=== PATIENT | male | born 1975 | race Two or more races ===

== ENCOUNTER 2023-08-28 12:04 | Outpatient (OUT) | payer OTHER, SELFPAY ==
[2023-08-28 12:37] LABS: Basophils Absolute Auto 0.1 10^3/uL (0.0-0.1); Basophils Percent Auto 0.7 % (0.2-2.0); Eosinophils Absolute Auto 0.2 10^3/uL (0.0-0.7); Eosinophils Percent Auto 2.2 % (0.9-7.0); Hematocrit 48.4 % (42.0-54.0); Hemoglobin 16.6 g/dL (14.0-18.0); Immature Granulocytes Abs Auto 0.02 10^3/uL (0.00-0.03); Immature Granulocytes Pct Auto 0.2 % (0.0-0.5); Lymphocytes Absolute Auto 2.2 10^3/uL (1.2-3.8); Mean Corpuscular HGB Conc 34.3 g/dL (29.9-35.2); Mean Corpuscular Hemoglobin 31.9 pg (25.9-34.0); Mean Corpuscular Volume 93.1 fL (80.0-94.0); Mean Platelet Volume 9.1 fL (9.5-13.5); Monocytes Absolute Auto 0.8 10^3/uL (0.3-0.8); Monocytes Percent Auto 8.2 % (1.7-12.0); Neutrophils Absolute Auto 5.9 10^3/uL (1.4-6.5); Neutrophils Percent Auto 64.7 % (43.0-75.0); Platelet Count 231 10^3/uL (150-450); Red Cell Distribution Width 12.6 % (11.0-15.0); White Blood Count 9.1 10^3/uL (4.0-11.0)
[2023-08-28 12:55] LABS: Estimated Average Glucose 143 mg/dL; Glycohemoglobin A1C 6.6 % (4.5-6.2)
[2023-08-28 14:07] LABS: Alanine Aminotransferase 63 U/L (16-63); Albumin Level 3.9 g/dL (3.4-5.0); Alkaline Phosphatase 132 U/L (46-116); Anion Gap 12.8; Aspartate Amino Transferase 52 U/L (15-37); BUN Creatinine Ratio 11.3; Bilirubin Direct 0.2 mg/dL (0.0-0.2); Bilirubin Total 0.9 mg/dL (0.2-1.0); Calcium 9.1 mg/dL (8.5-10.1); Carbon Dioxide 26.3 mmol/L (21.0-32.0); Chloride 106 mmol/L (98-107); Chol HDL Ratio 2.8; Cholesterol 150 mg/dL (<=200); Estimated GFR (African America >60 (>=60); Estimated GFR (Non-African Ame >60 (>=60); Globulin 3.9 g/dL; Glucose 136 mg/dL (74-106); HDL Cholesterol 53 mg/dL (40-60); Potassium 4.1 mmol/L (3.5-5.1); Sodium 141 mmol/L (136-145); Thyroid Stimulating Hormone 1.015 uIU/mL (0.358-3.740); Total Protein 7.8 g/dL (6.4-8.2); Triglycerides 135 mg/dL (<=150)
[2023-08-28 14:11] LABS: Microalbumin Urine Random 15.5 mg/dL (<=30.0)
== END 2023-08-28 12:05 | disposition home or self-care (01) ==
LOC: LAB 12:07
PROVIDERS: PCP Family Medicine; Visit Provider Family Medicine
DX: Z00.00 Encounter for general adult medical examination without abnormal findings (principal); E55.9 Vitamin D deficiency, unspecified; E11.65 Type 2 diabetes mellitus with hyperglycemia
CPT/HCPCS: 36415; 80048; 80061; 80076; 82043; 82306; 83036; 84153; 84443; 85025

== ENCOUNTER 2024-03-23 09:47 | Outpatient (OUT) | payer OTHER, SELFPAY ==
[2024-03-23 11:31] LABS: Estimated Average Glucose 180 mg/dL; Glycohemoglobin A1C 7.9 % (4.5-6.2)
== END 2024-03-23 09:48 | disposition home or self-care (01) ==
LOC: LAB 09:49
PROVIDERS: PCP Family Medicine; Visit Provider Family Medicine
DX: E11.65 Type 2 diabetes mellitus with hyperglycemia (principal)
CPT/HCPCS: 36415; 83036

== ENCOUNTER 2024-11-07 12:36 | Outpatient (OUT) | payer OTHER, SELFPAY ==
[2024-11-07 13:12] LABS: Basophils Absolute Auto 0.1 10^3/uL (0.0-0.1); Basophils Percent Auto 0.7 % (0.2-2.0); Eosinophils Absolute Auto 0.2 10^3/uL (0.0-0.7); Eosinophils Percent Auto 1.8 % (0.9-7.0); Hematocrit 47.4 % (42.0-54.0); Hemoglobin 17.1 g/dL (14.0-18.0); Immature Granulocytes Abs Auto 0.03 10^3/uL (0.00-0.03); Immature Granulocytes Pct Auto 0.3 % (0.0-0.5); Lymphocytes Absolute Auto 2.5 10^3/uL (1.2-3.8); Lymphocytes Percent Auto 28.7 % (20.5-60.0); Mean Corpuscular HGB Conc 36.1 g/dL (29.9-35.2); Mean Corpuscular Volume 88.6 fL (80.0-94.0); Mean Platelet Volume 9.5 fL (9.5-13.5); Monocytes Absolute Auto 0.8 10^3/uL (0.3-0.8); Monocytes Percent Auto 8.7 % (1.7-12.0); Neutrophils Absolute Auto 5.2 10^3/uL (1.4-6.5); Neutrophils Percent Auto 59.8 % (43.0-75.0); Platelet Count 294 10^3/uL (150-450); Red Blood Count 5.35 10^6/uL (4.70-6.10); Red Cell Distribution Width 12.5 % (11.0-15.0); White Blood Count 8.8 10^3/uL (4.0-11.0)
[2024-11-07 13:36] LABS: Creatinine Urine Random >800.00 mg/dL (20.00-300.00); Microalbumin Urine Random 31.3 mg/dL (<=30.0)
[2024-11-07 13:37] LABS: Estimated Average Glucose 194 mg/dL; Glycohemoglobin A1C 8.4 % (4.5-6.2)
[2024-11-07 13:48] LABS: Alanine Aminotransferase 96 U/L (16-63); Albumin Globulin Ratio 1.1; Alkaline Phosphatase 145 U/L (46-116); Anion Gap 17.3; Aspartate Amino Transferase 89 U/L (15-37); BUN Creatinine Ratio 12.2; Bilirubin Direct 0.2 mg/dL (0.0-0.2); Bilirubin Total 0.7 mg/dL (0.2-1.0); Calcium 9.3 mg/dL (8.5-10.1); Carbon Dioxide 23.9 mmol/L (21.0-32.0); Chloride 99 mmol/L (98-107); Chol HDL Ratio 3.2; Cholesterol 178 mg/dL (<=200); Estimated GFR (African America >60 (>=60 mL/min/1.73m^2); Estimated GFR (Non-African Ame >60 (>=60 mL/min/1.73m^2); Globulin 3.8 g/dL; Glucose 191 mg/dL (74-106); HDL Cholesterol 55 mg/dL (40-60); Potassium 4.2 mmol/L (3.5-5.1); Sodium 136 mmol/L (136-145); Thyroid Stimulating Hormone 2.142 uIU/mL (0.358-3.740); Total Protein 7.8 g/dL (6.4-8.2); Triglycerides 235 mg/dL (<=150)
[2024-11-07 15:13] LABS: Prostate Specific Antigen Scrn 1.01 ng/mL (<=4.00)
== END 2024-11-07 12:37 | disposition home or self-care (01) ==
LOC: LAB 12:38
PROVIDERS: PCP Family Medicine; Visit Provider Family Medicine
DX: Z00.00 Encounter for general adult medical examination without abnormal findings (principal); E11.65 Type 2 diabetes mellitus with hyperglycemia
CPT/HCPCS: 36415; 80048; 80061; 80076; 82043; 82570; 83036; 84443; 85025; G0103

== ENCOUNTER 2025-02-24 10:42 | Outpatient (OUT) | payer OTHER, SELFPAY ==
--- OUTSIDE RECORDS SUMMARY | 2025-02-21 15:00 | XMS_ITS | Encounter Summary ---
Author Organization [facility] Address [address] [place] [address] Care Team Providers Care Door Frame Assembler Machine Name Role Phone Aaron Szymanski MD Primary Care Provider [phone] Reason for Visit * Reason Comments Follow-up 6m Encounter Details Date Type Department Care Team (Late st Contact Info) Description 02/21/2025 3:00 PM EDT [facility] [address] [place] [address] Aaron Szymanski MD [address] [place] [phone] Type 2 diabetes mellitus with hyperglycemia, without long-term current use of insulin (HCC) (Primary Dx); Essential hypertension, benign ; Erectile dysfunction of organic origin; Class 2 severe obesity due to excess calories with serious comorbidity and body mass index (BMI) of 37.0 to 37.9 in adult ([facility]); Type 2 diabetes mellitus with diabetic microalbuminuria, without long-term current use of insulin (HCC) Social History Tobacco Use Types Packs/Day Years Used Date Smoking Tobacco: Every Day Cigarettes 0.5 23 Smokeless Tobacco: Never Sex and Gender Information Value Date Recorded Sex Assigned at Not on file Legal Sex Male 7:15 PM EDT Gender Identity Not on file Sexual Orientation Not on file documented as of this encounter Last Filed Vital Signs Vital Sign Reading Time Taken Comments Blood Pressure 140/84 02/21/2025 3:10 PM EDT Pulse 111 02/21/2025 3:10 PM EDT Temperature 36.6 C (97.8 F) 02/21/2025 3:10 PM EDT Respiratory Rate 20 02/21/2025 3:10 PM EDT Oxygen Saturation 98% 02/21/2025 3:10 PM EDT Inhaled Oxygen Concentration - - Weight 115 kg (253 lb) 02/21/2025 3:10 PM EDT Height 175.3 cm (5' 9 ) 02/21/2025 3:10 PM EDT Body Mass Index 37.36 02/21/2025 3:10 PM EDT documented in this encounter Progress Notes * Aaron Szymanski MD - 02/21/2025 3:40 PM EDTAssociated Problem(s): Type 2 diabetes mellitus with diabetic microalbuminuria, without long-term current use of insulin (HCC) Continue lisinopril. * Aaron Szymanski MD - 02/21/2025 3:39 PM EDTAssociated Problem(s): Type 2 diabetes mellitus with hyperglycemia, without long-term current use of insulin (HCC) Not checking BS away from office and due for A1C. Stick to ADA diet and limit carbs. * Aaron Szymanski MD - 02/21/2025 3:39 PM EDTAssociated Problem(s): Essential hypertension, benign BP controlled and monitor PRN. * Aaron Szymanski MD - 02/21/2025 3:39 PM EDTAssociated Problem(s): Erectile dysfunction of organic origin Use viagra PRN. * Aaron Szymanski MD - 02/21/2025 3:39 PM EDTAssociated Problem(s): Class 2 severe obesity due to excess calories with serious comorbidity and body mass index (BMI) of 37.0 to 37.9 in adult ([facility]) Weight loss indicated. * Aaron Szymanski MD - 02/21/2025 3:00 PM EDT Images from the original note were not included. Subjective Patient ID: Braulio Olea is a 49 y.o. male who presents for Follow-up (6m). Follow up DM and HTN. Patient stable today. Not checking BS away from office. Tries to eat well andstick to ADA diet. Denies signs of elevated BS such as polyuria, polyphagia or polydipsia. CheckingBP PRN and typically controlled. BP normal today. Taking medication daily and tolerating without side effects. Requests refill of sildenafil. Often able to get erection but lose quickly. Often soft and not enough for penetration. Medication helped in past. Review of Systems Constitutional: Negative for fatigue. Respiratory: Negative for cough, shortness of breath and wheezing. Cardiovascular: Negative for chest pain and palpitations. Gastrointestinal: Negative for abdominal pain, diarrhea, nausea and vomiting. Genitourinary: Negative for dysuria. Objective Physical Exam Constitutional: General: He is not in acute distress. Appearance: Normal appearance. HENT: Head: Normocephalic. Right Ear: Tympanic membrane and ear canal normal. Left Ear: Tympanic membrane and ear canal normal. Eyes: Extraocular Movements: Extraocular movements intact. Pupils: Pupils are equal, round, and reactive to light. Cardiovascular: Rate and Rhythm: Normal rate and regular rhythm. Heart sounds: No murmur heard. No friction rub. No gallop. Pulmonary: Breath sounds: Normal breath sounds. No wheezing, rhonchi or rales. Abdominal: General: Bowel sounds are normal. There is no distension. Palpations: Abdomen is soft. Tenderness: There is no abdominal tenderness. There is no guarding or rebound. Musculoskeletal: Left lower leg: No edema. Neurological: Mental Status: He is alert. Assessment/Plan Problem List Items Addressed This Visit Essential hypertension, benign BP controlled and monitor PRN. Erectile dysfunction of organic origin Use viagra PRN. Relevant Medications sildenafil (Revatio) 20 MG tablet Type 2 diabetes mellitus with hyperglycemia, without long-term current use of insulin (HCC) - Primary Not checking BS away from office and due for A1C. Stick to ADA diet and limit carbs. Relevant Orders Hemoglobin A1c Class 2 severe obesity due to excess calories with serious comorbidity and body mass index (BMI) of37.0 to 37.9 in adult ([facility]) Weight loss indicated. Type 2 diabetes mellitus with diabetic microalbuminuria, without long-term current use of insulin (HCC) documented in this encounter Plan of Treatment Upcoming Encounters Date Type Department Care Team (Late st Contact Info) Description 08/29/2025 3:00 PM EST [facility] [address] [place] [address] Aaron Szymanski MD [address] [place] [phone] Scheduled Orders Name Type Priority Associated Diagnoses Orde r Schedule Hemoglobin A1c Lab Routine Type 2 diabetes mellitus with hyperglycemia, without long-term current use of insulin (HCC) Expected: 02/21/2025 (Approximate), Expires: 02/21/2026 documented as of this encounter Visit Diagnoses Diagnosis Type 2 diabetes mellitus with hyperglycemia, without long-term current use of insulin (HCC)- Primary Essential hypertension, benign Essential hypertension, benign 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
--- OUTSIDE RECORDS SUMMARY | 2025-02-24 10:45 | XMS_ITS | Encounter Summary ---
Author Organization [facility] Address [address] [place] [address] Care Team Providers Care Risk Management Specialist Name Role Phone Aaron Szymanski MD Primary Care Provider [phone] Encounter Details Date Type Department Care Team ([facility] Contact Info) Description 02/21/2025 Bamboo flowsheet [facility] [address] [place] [phone] Aaron Szymanski MD [address] [place] [phone] Social History Tobacco Use Types Packs/Day Years Used Date Smoking Tobacco: Every Day Cigarettes 0.5 23 Smokeless Tobacco: Never Sex and Gender Information Value Date Recorded Sex Assigned at Not on file Legal Sex Male 7:15 PM EDT Gender Identity Not on file Sexual Orientation Not on file documented as of this encounter Plan of Treatment Upcoming Encounters Date Type Department Care Team ([facility] Contact Info) Description 08/29/2025 3:00 PM EST Office Visit [facility] [address] [place] [address] Aaron Szymanski MD [address] [place] [phone] documented as of this encounter Visit Diagnoses Not on filedocumented in this encounter Care Teams Risk Management Specialist Relationship Specialty Start Date End Date Aaron Szymanski MD [address] [place] [address] PCP - General Family Medicine 02/16/24 documented as of this encounter
--- OUTSIDE RECORDS SUMMARY | 2025-02-24 10:45 | XMS_ITS | Encounter Summary ---
Author Organization [facility] Address [address] [place] [address] Care Team Providers Care Regulatory Compliance Engineer Name Role Phone Aaron Szymanski MD Primary Care Provider Encounter Details Date Type Department Care Team ([facility] Contact Info) Description 11/07/2024 Results Follow-Up [facility] [address] [place] [address] Aaron Szymanski MD [address] [place] [phone] ALL CBC WITH AUTO DIFF, TBH MICROALB CREAT RATIO RANDOM, MLR HEMOGLOBIN A1C, Additional followed-up results: 4 Social History Tobacco Use Types Packs/Day Years [...] Encounters Date Type Department Care Team (Late Contact Info) Description 08/29/2025 3:00 PM EST Office Visit [facility] [address] [place] [address] Aaron Szymanski MD [address] [place] [address] documented as of this encounter Visit Diagnoses Not on filedocumented in this encounter Care Teams Regulatory Compliance Engineer Relationship Specialty Start Date End Date Aaron Szymanski MD [address] [facility] [place] [address] PCP - General Family Medicine 02/16/24 documented as of this encounter
--- OUTSIDE RECORDS SUMMARY | 2025-02-24 10:45 | XMS_ITS | Encounter Summary ---
Author Organization [facility] Address [address] [place] [address] Care Team Providers Care Roving Inspector Name Role Phone Aaron Szymanski MD Primary Care Provider [phone] Reason for Visit * Reason Comments Med Refill Encounter Details Date Type Department Care Team (Late Contact Info) Description 10/05/2024 [facility] [address] [place] [address] Aarno Szymanski MD [address] [place] [phone] Poorly controlled diabetes mellitus (HCC) Social History Tobacco Use Types Packs/Day Years Used Date Smoking Tobacco: Every Day Cigarettes 0.5 23 Smokeless Tobacco: Never Sex and Gender Information Value Date Recorded Sex Assigned at Not on file Legal Sex Male 7:15 PM EDT Gender Identity Not on file Sexual Orientation Not on file documented as of this encounter Miscellaneous Notes * Telephone Encounter - MARCIE VIGIL - 10/05/2024 11:06 AM EDT MEDICATION SENT TO [facility] documented in this encounter Plan of Treatment Upcoming Encounters Date Type Department Care Team ([facility] Contact Info) Description 08/29/2025 3:00 PM EST [facility] [address] [place] [phone] Aaron Szymanski MD [address] [place] [address] documented as of this encounter Visit Diagnoses Diagnosis Poorly controlled diabetes mellitus (HCC) Type II or unspecified type diabetes mellitus without mention of complication, not stated as uncontrolled documented in this encounter Care Teams Roving Inspector Relationship Specialty Start Date End Date Aaron Szymanski MD [address] [place] [address] PCP - General Family Medicine 02/16/24 documented as of this encounter
--- OUTSIDE RECORDS SUMMARY | 2025-02-24 10:45 | XMS_ITS | Encounter Summary ---
Author Organization [facility] Address [address] [place] [address] Care Team Providers Care Hydraulic Press Servicer Name Role Phone Aaron Szymanski MD Primary Care Provider [phone] Reason for Visit * Reason Comments Med Refill Encounter Details Date Type Department Care Team (Late Contact Info) Description 10/13/2024 Refill [facility] [address] [place] [address] Aaron Szymanski MD [address] [place] [address] Poorly controlled diabetes mellitus (HCC); Benign hypertension Social History Tobacco Use Types Packs/Day Years Used Date Smoking Tobacco: Every Day Cigarettes 0.5 23 Smokeless Tobacco: Never Sex and Gender Information Value Date Recorded Sex Assigned at Not on file Legal Sex Male 7:15 PM EDT Gender Identity Not on file Sexual Orientation Not on file documented as of this encounter Miscellaneous Notes * Telephone Encounter - MARCIE VIGIL - 10/13/2024 8:17 AM EDT MEDICATION SENT TO [facility] documented in this encounter Plan of Treatment Upcoming Encounters Date Type Department Care Team ([facility] Contact Info) Description 08/29/2025 3:00 PM EST Office Visit [facility] [address] [place] [phone] Aaron Szymanski MD [address] [address] documented as of this encounter Visit Diagnoses Diagnosis Poorly controlled diabetes mellitus (HCC) Type II or unspecified type diabetes mellitus without mention of complication, not stated as uncontrolled Benign hypertension Essential hypertension, benign documented in this encounter Care Teams Hydraulic Press Servicer Relationship Specialty Start Date End Date Aaron Szymanski MD [address] [place] [phone] PCP - General Family Medicine 02/16/24 documented as of this encounter
--- OUTSIDE RECORDS SUMMARY | 2025-02-24 10:45 | XMS_ITS | Clinical Summary ---
Author Organization [facility] Healthcare Address [address] [place] [address] Care Team Providers Care Technical Proposal Writer Name Role Phone Aaron Szymanski MD Primary Care Provider [phone] Allergies No known active allergies Medications atorvastatin (Lipitor) 40 MG tabletIndication s:Dyslipidemia Take 1 tablet (40 mg) by mouth at bedtime 90 tablet 3 09/05/19 25 Active metFORMIN XR (Glucophage-XR) 500 MG 24 hr tabletIndication s:Poorly controlled diabetes mellitus (HCC) TAKE 1 TABLET BY MOUTH IN THE EVENING WITH A MEAL . SWALLOW WHOLE, DO NOT CRUSH, SPLIT, OR CHEW. 30 tablet 02/10/20 25 Active lisinopril 20 MG tabletIndication s:Benign hypertension TAKE 1 TABLET BY MOUTH IN THE MORNING 30 tablet 02/21/20 25 Active glipiZIDE (Glucotrol) 10 MG tabletIndication s:Poorly controlled diabetes mellitus (HCC) TAKE 1 TABLET BY MOUTH IN THE MORNING 30 tablet 02/21/20 25 Active sildenafil (Revatio) 20 MG tabletIndication s:Erectile dysfunction of organic origin Take 1 tablet (20 mg) by mouth Daily as needed (ED) 30 tablet 3 02/22/20 25 Active metFORMIN XR (Glucophage-XR) 500 MG 24 hr tabletIndication s:Poorly controlled diabetes mellitus (HCC) TAKE 1 TABLET BY MOUTH IN THE EVENING WITH MEALS SWALLOW WHOLE, DO NOT CRUSH SPLIT OR CHEW 30 tablet 01/10/20 25 025 Discontinued lisinopril 20 MG tabletIndication s:Benign hypertension TAKE 1 TABLET BY MOUTH IN THE MORNING 30 tablet 07/07/ 025 Discontinued glipiZIDE (Glucotrol) 10 MG tabletIndication s:Poorly controlled diabetes mellitus (HCC) TAKE 1 TABLET BY MOUTH IN THE MORNING 30 tablet 01/17/20 025 Discontinued Active Problems Problem Noted Date Diagnosed Date Type 2 diabetes mellitus wit h diabetic microalbuminuria, without long-term current use of insulin 02/21/2025 Assessment & Plan (02/21/2025 3:40 PM EDT): Continue lisinopril. Class 2 severe obesity due t o excess calories with serious comorbidity and body mass index (BMI) of 37.0 to 37.9 in adult 02/16/2024 Assessment & Plan (02/21/2025 3:39 PM EDT): Weight loss indicated. Assessment & Plan (08/23/2024 4:23 PM EST): Discussed proper diet and regular aerobic exercise. Recommend Weight Watchers and need to limit calories and smaller portions. Need to increase activity and regular aerobic exercise several days a week for 30 minutes at a time. Assessment & Plan (02/16/2024 4:06 PM EDT): Discussed proper diet and regular aerobic exercise. Recommend Weight Watchers and need to limit calories and smaller portions. Need to increase activity and regular aerobic exercise several days a week for 30 minutes at a time. Vitamin D deficiency 08/28/2023 Essential hypertension, benign 07/21/2023 Assessment & Plan (02/21/2025 3:39 PM EDT): BP controlled and monitor PRN. Assessment & Plan (08/23/2024 4:23 PM EST): BP controlled and monitor PRN. Assessment & Plan (02/16/2024 4:06 PM EDT): BP controlled and monitor PRN. Assessment & Plan (07/21/2023 4:21 PM EST): BP controlled and monitor PRN. Dyslipidemia 07/21/2023 Erectile dysfunction of organic origin Assessment & Plan (02/21/2025 3:39 PM EDT): Use viagra PRN. Type 2 diabetes mellitus wit h hyperglycemia, without long-term current use of insulin 07/21/2023 Assessment & Plan (02/21/2025 3:39 PM EDT): Not checking BS away from office and due for A1C. Stick to ADA diet and limit carbs. Assessment & Plan (08/23/2024 4:23 PM EST): Not checking BS away from office and due for A1C. Stick to ADA diet and limit carbs. Assessment & Plan (02/16/2024 4:06 PM EDT): Not checking BS away from office and due for A1C. Stick to ADA diet and limit carbs. Assessment & Plan (07/21/2023 4:21 PM EST): Not checking BS away from office and due for A1C. Stick to ADA diet and limit carbs. Annual physical exam 07/21/2023 Assessment & Plan (08/23/2024 4:23 PM EST): Due for labs. Discussed proper diet and regular aerobic exercise. Need aerobic exercise 5-6 days a week for 30 minutes at a time. Smaller portions and limit total calories. Cologuard normal November 2023. Tetanus every 10 years. Advised not to smoke. Assessment & Plan (07/21/2023 4:20 PM EST): Due for labs. Discussed proper diet and regular aerobic exercise. Need aerobic exercise 5-6 days a week for 30 minutes at a time. Smaller portions and limit total calories. Never had colon cancer screening and willing to have cologuard. Tetanus every 10 years. Advised not to smoke. Discussed daily Aspirin therapy. Colon cancer screening 07/21/2023 Encounters Date Type Department Care Team Description 02/21/2025 3:00 PM EDT Office Visit [facility] [address] [place] [address] Aaron Szymanski MD Type 2 diabetes mellitus with hyperglycemia, without long-term current use of insulin ([facility]) (Primary Dx); Essential hypertension, benign ; Erectile dysfunction of organic origin; Class 2 severe obesity due to excess calories with serious comorbidity and body mass index (BMI) of 37.0 to 37.9 in adult ([facility]); Type 2 diabetes mellitus with diabetic microalbuminuria, without long-term current use of insulin ([facility]) 02/21/2025 Bamboo flowsheet [facility] [address] [place] [address] Aaron Szymanski MD 02/17/2025 Refill [facility] [address] [place] [address] Aaron Szymanski MD Benign hypertension ; Poorly controlled diabetes mellitus (HCC) 02/09/2025 Refill [facility] [address] [place] [address] Aaron Szymanski MD Poorly controlled diabetes mellitus (HCC) 01/13/2025 Refill [facility] [address] [place] [address] Aaron Szymanski MD Benign hypertension ; Poorly controlled diabetes mellitus (HCC) 01/07/2025 Refill [facility] [address] [place] [address] Aaron Szymanski MD Poorly controlled diabetes mellitus (HCC) 12/13/2024 Refill [facility] [address] [place] [address] Aaron Szymanski MD Benign hypertension ; Poorly controlled diabetes mellitus (HCC) 12/07/2024 Refill [facility] [address] [place] [address] Aaron Szymanski MD Poorly controlled diabetes mellitus (HCC) from Last 3 Months Family History Medical History Relation Name Comments Alzheimer's disease Father Cerebrovascular Disease Father Diabetes Mother Relation Name Status Comments Father Mother Social History Tobacco Use Types Packs/Day Years Used Date Smoking Tobacco: Every Day Cigarettes 0.5 23 Smokeless Tobacco: Never Sex and Gender Information Value Date Recorded Sex Assigned at Not on file Legal Sex Male 7:15 PM EDT Gender Identity Not on file Sexual Orientation Not on file Last Filed Vital Signs Vital Sign Reading [...] Mass Index 37.36 02/21/2025 3:10 PM EDT Plan of Treatment Upcoming Encounters Date Type Department Care Team (Late st Contact Info) Description 08/29/2025 3:00 PM EST Office Visit [facility] [address] [place] [address] Aaron Szymanski MD [address] [place] [address] Health Maintenance Due Date Last Done Comments CT Colonography 1976 Colonoscopy 1976 FIT 1976 FOBT 1976 Sigmoidoscopy 1976 Influenza Vaccine (#1) 2025 Diabetes: Hemoglobin A1C 05/09/2025 11/07/2024, 08/13 Diabetes: Urine Protein Screening 11/07/2025 025, 08/28/2023 Diabetes: Retinopathy Screening 01/18/2026 Colorectal Cancer Screening 12/08/2026 FIT-DNA 12/08/2026 12/09/2023 Procedures Procedure Name Priority Date/Time Associated Diagnosis Comments DIABETIC RETINOPATHY SCREENING - OU - BOTH EYES Routine 01/19/2024 8:05 AM EDT LAB COLOGUARD COLON CANCER SCREEN Routine 12/09/2023 10:00 AM EDT Colon cancer screening from Last 3 Months or Most Recently Relevant to Health Maintenance Results * Diabetic Retinopathy Screening - OU - Both Eyes (01/19/2024 8:05 AM EDT) Anatomical Region Laterality Modality Head Other Aaron Szymanski MD OPHTH PHOTOGRAPHY Final Result * Cologuard?? colon cancer screening (12/09/2023 10:00 AM EDT) NONINV COLON CA DNA+OCC BLD SCRN STL-IMP Negative Negative 12/16/2023 7:53 PM EDT [facility] (CLIA #:[id number]) Comment: NEGATIVE TEST RESULT. A negative Cologuard result indicates a low likelihood that a colorectal cancer (CRC) or advanced adenoma (adenomatous polyps with more advanced pre-malignant features) is present. The chance that a person with a negative Cologuard test has a colorectal cancer is less than 1 in 1500 (negative predictive value >99.9%) or has an advanced adenoma is less than 5.3% (negative predictive value 94.7%). These data are based on a prospective cross-sectional study of 10,000 individuals at average risk for colorectal cancer who were screened with both Cologuard and colonoscopy. (Manny Barker al, N Engl J Med 2014;370(14):8783-8867) The normal value (reference range) for this assay is negative. COLOGUARD RE-SCREENING RECOMMENDATION: Periodic colorectal cancer screening is an important part of preventive healthcare for asymptomatic individuals at average risk for colorectal cancer. Following a negative Cologuard result, the [place] [employer] Society and U.S. Multi-Society Task Force screening guidelines recommend a Cologuard re-screening interval of 3 years. References: [place] [employer] Guideline for Colorectal Cancer Screening: https://www.cancer.org/cancer/nuphx-suudan-qlaqwg/svylxxpsx-dkyopflar-uhuajuy/ac s-rec ommendations.html.; Gopi IRIZARRY, Anna GARCIA, Bob FIELDS, Colorectal Cancer Screening: Recommendations for Physicians and Patients from the U.S. Multi-Society Task Force on Colorectal Cancer Screening , Am J Gastroenterology 2017; 112:5462-8026. TEST DESCRIPTION: Composite algorithmic analysis of stool DNA-biomarkers with hemoglobin immunoassay. Quantitative values of individual biomarkers are not reportable and are not associated with individual biomarker result reference ranges. Cologuard is intended for colorectal cancer screening of adults of either sex, 45 years or older, who are at average-risk for colorectal cancer (CRC). Cologuard has been approved for use by the U.S. FDA. The performance of Cologuard was established in a cross sectional study of average-risk adults aged 50-84. Cologuard performance in patients ages 45 to 49 years was estimated by sub-group analysis of near-age groups. Colonoscopies performed for a positive result may find as the most clinically significant lesion: colorectal cancer [4.0%], advanced adenoma (including sessile serrated polyps greater than or equal to 1cm diameter) [20%] or non- advanced adenoma [31%]; or no colorectal neoplasia [45%]. These estimates are derived from a prospective cross-sectional screening study of 10,000 individuals at average risk for colorectal cancer who were screened with both Cologuard and colonoscopy. (Manny Ortiz. et al, N Engl J Med 2014;370(14):6614-2736.) Cologuard may produce a false negative or false positive result (no colorectal cancer or precancerous polyp present at colonoscopy follow up). A negative Cologuard test result does not guarantee the absence of CRC or advanced adenoma (pre-cancer). The current Cologuard screening interval is every 3 years. ([place] [employer] and U.S. Multi-Society Task Force). Cologuard performance data in a 10,000 patient pivotal study using colonoscopy as the reference method can be accessed at the following location: www.[employer].com/results. Additional description of the Cologuard test process, warnings and precautions can be found at www.[employer].com. Stool specimen (specimen) 12/09/2023 10:00 AM EDT 12/10/2023 1:38 PM EDT Aaron Szymanski MD LAB MOLECULAR DIAGNOSTICS ORDERA BLES Final Result .[employer] (CLIA #:[id number]) [address] [id number], [facility] (CLIA #:[id number]) [address] [id number] from Last 3 Months or Most Recently Relevant to Health Maintenance Insurance [employer] Care Teams Technical Proposal Writer Relationship Specialty Start Date End Date Aaron Szymanski MD [address] [place] [phone] PCP - General Family Medicine 02/16/24
--- OUTSIDE RECORDS SUMMARY | 2025-02-24 10:45 | XMS_ITS | Encounter Summary ---
Author Organization [facility] Address [address] [place] [address] Care Team Providers Care Substation Operator Helper Name Role Phone Aaron Szymanski MD Primary Care Provider [phone] Aaron Szymanski MD Primary Care Provider [phone] Encounter Details Date Type Department Care Team (Late Contact Info) Description 01/20/2024 Orders Only [facility] [address] [place] [address] Aaron Szymanski MD [address] [place] [address] Social History Tobacco Use Types Packs/Day Years [...] 08/29/2025 3:00 PM EST Office Visit [facility] [address] [place] [phone] Aaron Szymanski MD [address] [place] [address] documented as of this encounter Procedures Procedure Name Priority Date/Time Associated Diagnosis Comments DIABETIC RETINOPATHY SCREENING - OU - BOTH EYES Routine 01/19/2024 8:05 AM EDT documented in this encounter Results * Diabetic Retinopathy Screening - OU - Both Eyes (01/19/2024 8:05 AM EDT) Anatomical Region Laterality Modality Head Other Aaron Szymanski MD OPHTH PHOTOGRAPHY Final Result documented in this encounter Visit Diagnoses Not on filedocumented in this encounter Care Teams Substation Operator Helper Relationship Specialty Start Date End Date Aaron Szymanski MD PCP - General Family Medicine 05/15/23 02/15/24 Aaron Szymanski MD [address] [place] [address] PCP - General Family Medicine 02/16/24 documented as of this encounter
--- OUTSIDE RECORDS SUMMARY | 2025-02-24 10:49 | XMS_ITS | CCD ---
Author Organization [facility] Care Team Providers Care Transportation Solutions Manager Name Role Phone Ciara Trinh Unavailable Ciara Ortega Unavailable MANNY CALI Admitting Unavailable MANNY CALI Attending Unavailable MANNY CALI Primary Care Unavailable MANNY CALI Consulting Unavailable MANNY CALI Admitting Unavailable MANNY CALI Attending Unavailable MANNY CALI Primary Care Unavailable MANNY CALI Consulting Unavailable Manny Cali MD Primary Care Provider [phone] MANNY CALI Attending Unavailable MANNY CALI Attending Unavailable Medications Current Medications Medication Drug Class(es) Dates Sig (Normalized) Sig (Original) atorvastatin 40 mg oral tablet (12 sources) HMG-CoA Reductase Inhibitor Start: 09-01-2024 End: 09-05-2024 take 1 tablet by mouth at bedtime atorvastatin (Lipitor) 40 MG tablet Indications: Dyslipidemia Take 1 tablet (40 mg) by mouth at bedtime 90 tablet 3 09/05/2024 Active Start: 07-27-2024 take 1 tablet by donta th at bedtime atorvastatin (Lipitor) 40 MG tablet Indications: Dyslipidemia (CMS/HCC) TAKE 1 TABLET BY MOUTH AT BEDTIME 30 tablet 07/27/2024 Active Start: 03-15-2024 take 1 tablet by donta th at bedtime atorvastatin (Lipitor) 40 MG tablet Indications: Dyslipidemia (CMS/HCC) TAKE 1 TABLET BY MOUTH AT BEDTIME 30 tablet 03/15/2024 Active Atorvastatin Bharathi cium Active Cortisporin 3.3-3-10-0.5 mg/ml (1 source) Start: 04-06-2021 Cortisporin 3.3-3-10-0.5 mg/ml 4 drops into affected ear Otic Twice a day for 7 days Mar, Active glipiZIDE 10 mg oral tablet (11 sources) Sulfonylurea Start: 02-20-2025 take 1 tablet by mouth in the morning glipiZIDE (Glucotrol) 10 MG tablet Indications: Poorly controlled diabetes mellitus (HCC) TAKE 1 TABLET BY MOUTH IN THE MORNING 30 tablet 02/20/2025 Active Start: 10-13-2024 take 1 tablet by donta th in the morning glipiZIDE (Glucotrol) 10 MG tablet Indications: Poorly controlled diabetes mellitus (CMS/HCC) TAKE 1 TABLET BY MOUTH IN THE MORNING 30 tablet 10/13/2024 Active Start: 08-10-2024 take 1 tablet by donta th in the morning glipiZIDE (Glucotrol) 10 MG tablet Indications: Poorly controlled diabetes mellitus (CMS/HCC) TAKE 1 TABLET BY MOUTH IN THE MORNING 30 tablet 08/10/2024 Active Start: 07-17-2023 End: 07-16-2024 take 1 tablet by mouth in the morning glipiZIDE (Glucotrol) 10 MG tablet Indications: Poorly controlled diabetes mellitus (CMS/HCC) Take 1 tablet (10 mg) by mouth in the morning. 30 tablet 07/17/2023 07/16/2024 Active glipiZIDE Active lisinopril 20 mg oral tablet (11 sources) Angiotensin Converting Enzyme Inhibitor Start: 02-20-2025 take 1 tablet by mouth in the morning lisinopril 20 MG tablet Indications: Benign hypertension TAKE 1 TABLET BY MOUTH IN THE MORNING 30 tablet 02/20/2025 Active Start: 10-13-2024 take 1 tablet by donta th in the morning lisinopril 20 MG tablet Indications: Benign hypertension (CMS/HCC) TAKE 1 TABLET BY MOUTH IN THE MORNING 30 tablet 10/13/2024 Active Start: 08-10-2024 take 1 tablet by donta th in the morning lisinopril 20 MG tablet Indications: Benign hypertension (CMS/HCC) TAKE 1 TABLET BY MOUTH IN THE MORNING 30 tablet 08/10/2024 Active Start: 07-17-2023 End: 07-16-2024 take 1 tablet by mouth in the morning lisinopril 20 MG tablet Indications: Benign hypertension (CMS/HCC) Take 1 tablet (20 mg) by mouth in the morning. 30 tablet 11 07/17/2023 07/16/2024 Active Lisinopril Activ e 24 hr metFORMIN hydrochloride 500 mg extended release oral tablet (11 sources) Biguanide Start: 02-09-2025 take 1 tablet by mouth every twenty-four hours at mealtime metFORMIN XR (Glucophage-XR) 500 MG 24 hr tablet Indications: Poorly controlled diabetes mellitus (HCC) TAKE 1 TABLET BY MOUTH IN THE EVENING WITH A MEAL . SWALLOW WHOLE, DO NOT CRUSH, SPLIT, OR CHEW. 30 tablet 02/09/2025 Active Start: 11-07-2024 take 1 tablet by donta th once daily at mealtime metFORMIN XR (Glucophage-XR) 500 MG 24 hr tablet Indications: Poorly controlled diabetes mellitus (CMS/HCC) TAKE 1 TABLET BY MOUTH ONCE DAILY IN THE EVENING WITH MEALS DO NOT CRUSH, CHEW, OR SPLIT. 30 tablet 11/07/2024 Active Start: 08-09-2024 take 1 tablet by donta th once daily at mealtime metFORMIN XR (Glucophage-XR) 500 MG 24 hr tablet Indications: Poorly controlled diabetes mellitus (CMS/HCC) TAKE 1 TABLET BY MOUTH ONCE DAILY IN THE EVENING WITH MEALS . DO NOT CRUSH, CHEW, OR SPLIT. 30 tablet 08/09/2024 Active Start: 07-17-2023 End: 07-16-2024 take 1 tablet by mouth every twenty-four hours at mealtime metFORMIN XR (Glucophage-XR) 500 MG 24 hr tablet Indications: Poorly controlled diabetes mellitus (CMS/HCC) Take 1 tablet (500 mg) by mouth in the evening. Take with meals Do not crush, chew, or split. 30 tablet 11 07/17/2023 07/16/2024 Active metFORMIN HCl ER Active sildenafil 20 mg oral tablet (2 sources) Phosphodiesterase 5 Inhibitor Start: 02-21-2025 take 1 tablet by mouth once daily as needed sildenafil (Revatio) 20 MG tablet Indications: Erectile dysfunction of organic origin Take 1 tablet (20 mg) by mouth Daily as needed (ED) 30 tablet 3 02/21/2025 Active Vitamin D3 (2 sources) Vitamin D3 Activ e Problems Active Problems Problem Classification Problem Date Documented Da te Episodic/Chronic Diabetes mellitus with complications (20 sources) Type 2 diabetes mellitus with hyperglycemia; Translations: [Type 2 diabetes mellitus] Onset: 09-12-2022 Chronic Disorders of lipid metabolism (10 sources) Dyslipidemia; Translations: [Hyperlipidemia, unspecified] Onset: 07-21-2023 07-21-2023 Chronic Essential hypertension (13 sources) Benign essential hypertension; Translations: [Essential (primary) hypertension] Onset: 07-21-2023 07-21-2023 Chronic Immunizations and screening for infectious disease (3 sources) Contact with and (suspected) exposure to other viral communicable diseases; Translations: [Suspected clinical finding] Onset: 06-20-2021 Resolved: 06-20-2021 Episodic Nutritional deficiencies (10 sources) Vitamin D deficiency, unspecified; Translations: [Vitamin D deficiency] Onset: 09-26-2021 08-28-2023 Chronic Other male genital disorders (13 sources) Secondary erectile dysfunction; Translations: [Male erectile dysfunction, unspecified] Onset: 07-21-2023 07-21-2023 Chronic Other nutritional; endocrine; and metabolic disorders (2 sources) Morbid obesity; Translations: [Morbid (severe) obesity due to excess calories] Onset: 02-16-2024 02-16-2024 Chronic Other nutritional; endocrine; and metabolic disorders (11 sources) Severe obesity; Translations: [Class 2 severe obesity due to excess calories with serious comorbidity and body mass index (BMI) of 39.0 to 39.9 in adult ([facility])] Onset: 02-16-2024 08-23-2024 Chronic Past or Other Problems Problem Classification Problem Date Documented Da te Episodic/Chronic Other screening for suspected conditions (not mental disorders or infectious disease) (10 sources) Encounter for screening for malignant neoplasm of prostate; Translations: [Patient encounter status] Onset: 09-26-2021 07-21-2023 Episodic Viral infection (1 source) COVID-19 Results Test Name Value Interpretation Reference Range Facility ALL CBC WITH AUTO DIFFon BASOPHILS ABSOLUTE AUTO 0.1 [facility] Basophils/100 WBC (Bld) 0.7 % 0.2 - 2.0 % [facility] Eosinophils/100 WBC (Bld) 1.8 % 0.9 - 7.0 % [facility] Erythrocyte distribution width (RBC) [Ratio] 12.5 % 11.0 - 15.0 % [facility] Hematocrit (Bld) [Volume fraction] 47.4 % 42.0 - 54.0 % [facility] Hem[facility] (Bld) [Mass/Vol] 17.1 g/dL 14.0 - 18.0 g/dL [facility] IMMATURE GRANULOCYTES ABS AUTO 0.03 [facility] Immature granulocytes/100 WBC (Bld) 0.3 % 0.0 - 0.5 % [facility] Interpretation and review of laboratory results Abnormal [facility] LYMPHOCYTES ABSOLUTE AUTO 2.5 [facility] Lymphocytes/100 WBC (Bld) 28.7 % 20.5 - 60.0 % [facility] MCH (RBC) [Entitic mass] 32 pg 25.9 - 34.0 pg [facility] MCHC (RBC) [Mass/Vol] 36.1 g/dL High 29.9 - 35.2 g/dL [facility] MCV (RBC) [Entitic vol] 88.6 fL 80.0 - 94.0 fL [facility] MONOCYTES ABSOLUTE AUTO 0.8 [facility] Monocytes/100 WBC (Bld) 8.7 % 1.7 - 12.0 % [facility] NEUTROPHILS ABSOLUTE AUTO 5.2 [facility] Neutrophils/100 WBC (Bld) 59.8 % 43.0 - 75.0 % [facility] Platelet mean volume (Bld) [Entitic vol] 9.5 fL 9.5 - 13.5 fL [facility] Healthc are TBH EO # 0.2 [facility] Healthcar e TBH PLT 294 N[facility] Health[facility] e TB RBC 5.35 [facility] Healthcar e TBH WBC 8.8 [facility] Healthcar e [facility] N[facility] e MLR HEMOGLOBIN A1Con 024 Glucose [Mass/Vol] 180 mg/[facility] HbA1c (Bld) [Mass fraction] 7.9 % High 4.5 - 6.2 % [facility] Comment on above: ADA RECOMMENDED LIMI T 4.0 - 6.0 ADA THERAPEUTIC TARGET < 7.0 ACTION SUGGESTED > 7.0 Interpretation and review of laboratory results Abnormal [facility] Healthcar e GLYCOHEMOGLOBIN A1Con 2022 ADA RECOMMENDATION SEE BELOW Normal [facility] Comment on above: Result Comment: ADA RECOMMENDED LIMIT 4.0 - 6.0 ADA THERAPEUTIC TARGET < 7.0 ACTION SUGGESTED > 7.0 Performed By: #### A 1C #### [facility] [address] [place] [address] Dr. Judah Parnell Glucose [Mass/Vol] 180 mg/dL Normal [facility] Comment on above: Performed By: #### A 1C #### [facility] [address] [place] [address] Dr. Judah Parnell HbA1c (Bld) [Mass fraction] 7.9 % Critically high 4.5-6.2 [facility] Comment on above: Performed By: #### A 1C #### [facility] [address] [place] [address] Dr. Judah Parnell COVID/FLU RT-PCRon 2 SARS-CoV-2 (COVID-19) RNA ARIS+probe Ql (Unsp spec) Positive [facility] Other COVID/FLU RT-PCR Negative [facility] Other CBC AUTO DIFFon 09-25-2021 BASO # 0.1 103/ul Normal 0.0-0.1 [facility] Comment on above: Performed By: #### C BC #### [facility] [address] [place] [address] Dr. Judah Parnell Basophils/100 WBC (Bld) 0.7 % Normal 0.2-2.0 [facility] Comment on above: Performed By: #### C BC #### [facility] [address] [place] [address] Dr. Judah Parnell EO # 0.2 103/ul Normal 0.0-0.7 [facility] Comment on above: Performed By: #### C BC #### [facility] [address] [place] [address] Dr. Judah Parnell Eosinophils/100 WBC (Bld) 2.1 % Normal 0.9-7.0 [facility] Comment on above: Performed By: #### C BC #### [facility] [address] [place] [address] Dr. Judah Parnell Erythrocyte distribution width (RBC) [Ratio] 13.4 % Normal 11.0-15.0 [facility] Comment on above: Performed By: #### C BC #### [facility] [address] [place] [address] Dr. Judah Parnell Hematocrit (Bld) [Volume fraction] 48.9 % Normal 42.0-54.0 [facility] Comment on above: Performed By: #### C BC #### [facility] [address] [place] [address] Dr. Judah Parnell Hemoglobin (Bld) [Mass/Vol] 16.9 g/dL Normal 14.0-18.0 [facility] Comment on above: Performed By: #### C BC #### [facility] [address] [place] [address] Dr. Judah Parnell IG # 0.06 10e3/ul Critically high 0.00-0.03 [facility] Comment on above: Performed By: #### C BC #### [facility] [address] [place] [address] Dr. Judah Parnell IG % 0.7 % Critically high 0.0-0.5 [facility] Comment on above: Performed By: #### C BC #### [facility] [address] [place] [address] Dr. Judah Parnell LYMPH # 2.3 103/ul Normal 1.2-3.8 [facility] Comment on above: Performed By: #### C BC #### [facility] [address] [place] [address] Dr. Judah Parnell Lymphocytes/100 WBC (Bld) 26.2 % Normal 20.5-60.0 [facility] Comment on above: Performed By: #### C BC #### [facility] [address] [place] [address] Dr. Judah Parnell MANUAL DIFF REQ NO Normal [facility] Comment on above: Performed By: #### C BC #### [facility] [address] [place] [address] Dr. Judah Parnell MCH (RBC) [Entitic mass] 31.0 pg Normal 25.9-34.0 [facility] Comment on above: Performed By: #### C BC #### [facility] [address] [place] [address] Dr. Judah Parnell MCHC (RBC) [Mass/Vol] 34.6 g/dL Normal 29.9-35.2 [facility] Comment on above: Performed By: #### C BC #### [facility] [address] [address] [address] Judah Parnell MCV (RBC) [Entitic vol] 89.7 fL Normal 80.0-94.0 [facility] Comment on above: Performed By: #### C BC #### [facility] [address] [address] [address] Judah Parnell MONO # 0.7 103/ul Normal 0.3-0.8 [facility] Comment on above: Performed By: #### C BC #### [facility] [address] [place] [address] Dr. Judah Parnell Monocytes/100 WBC (Bld) 7.8 % Normal 1.7-12.0 [facility] Comment on above: Performed By: #### C BC #### [facility] [address] [place] [address] Dr. Judha Parnell NEUT # 5.4 103/ul Normal 1.4-6.5 [facility] Comment on above: Performed By: #### C BC #### [facility] [address] [place] [address] Dr. Judah Parnell Neutrophils/100 WBC (Bld) 62.5 % Normal 43.0-75.0 [facility] Comment on above: Performed By: #### C BC #### [facility] [address] [place] [address] Dr. Judah Parnell Platelet mean volume (Bld) [Entitic vol] 9.3 fL Critically low 9.5-13.5 [facility] Comment on above: Performed By: #### C BC #### [facility] [address] [place] [address] Dr. Judah Parnell PLT 226 103/ul Normal 150-450 [facility] Comment on above: Performed By: #### C BC #### [facility] [address] [place] [address] Dr. Judah Parnell RBC 5.45 106/ul Normal 4.70-6.10 [facility] Comment on above: Performed By: #### C BC #### [facility] [address] [place] [address] Dr. Judah Parnell WBC 8.6 103/ul Normal 4.0-11.0 [facility] Comment on above: Performed By: #### C BC #### [facility] [address] [place] [address] Dr. Judah Parnell GLYCOHEMOGLOBIN A1Con 2021 ADA RECOMMENDATION ADA THERAPEUTIC TARGET 6.0 - 7.0 ACTION SUGGESTED > 7.0 Normal [facility] Comment on above: Performed By: #### A 1C #### [facility] [address] [place] [address] Dr. Judah Parnell Glucose [Mass/Vol] 151 mg/dL Normal [facility] Comment on above: Performed By: #### A 1C #### [facility] [address] [place] [address] Dr. Judah Parnell HbA1c (Bld) [Mass fraction] 6.9 % Critically high <=6.0 [facility] Comment on above: Performed By: #### A 1C #### [facility] [address] [place] [address] Dr. Judah Parnell LIPID PROFILEon 09-25-2021 CHOL-HDL RATIO NORM SEE BELOW Normal [facility] Comment on above: Result Comment: 3.3 - 4.4 LOW RISK 4.4 - 7.1 AVERAGE RISK 7.1 - 11.0 MODERATE RISK >11.0 HIGH RISK Performed By: #### B MP, TSH, LIVER, LIPID #### [facility] [address] [place] [address] Dr. Judah Parnell Cholesterol [Mass/Vol] 160 mg/dL Normal <=200 [facility] Comment on above: Performed By: #### B MP, TSH, LIVER, LIPID #### [facility] [address] [place] [address] Dr. Judah Parnell Cholesterol in HDL [Mass/Vol] 45 mg/dL Normal [facility] Comment on above: Performed By: #### B MP, TSH, LIVER, LIPID #### [facility] [address] [address] [address] Judah Parnell Cholesterol in LDL [Mass/Vol] 77.0 mg/dL Normal [facility] Comment on above: Performed By: #### B MP, TSH, LIVER, LIPID #### [facility] [address] [address] [address] Judah Parnell Cholesterol.total/Ch olesterol in HDL [Mass ratio] 3.6 {ratio} Normal [facility] Comment on above: Performed By: #### B MP, TSH, LIVER, LIPID #### [facility] [address] [address] [address] Judah Parnell HDL NORMAL > or = 60 mg/dl - LOW CARDIOVASCULAR RISK <40 mg/dl - HIGH CARDIOVASCULAR RISK Normal [facility] Comment on above: Performed By: #### B MP, TSH, LIVER, LIPID #### [facility] [address] [address] [address] Judah Parnell LDL CALC NORMAL SEE BELOW Normal [facility] Comment on above: Result Comment: <100 mg/dl OPTIMAL 100 - 129 mg/dl NEAR OR ABOVE OPTIMAL 130 - 159 mg/dl BORDERLINE HIGH 160 - 189 mg/dl HIGH >190 mg/dl VERY HIGH Performed By: #### B MP, TSH, LIVER, LIPID #### [facility] [address] [address] [address] Judah Parnell Triglyceride [Mass/Vol] 190 mg/dL Critically high <=150 [facility] Comment on above: Performed By: #### B MP, TSH, LIVER, LIPID #### [facility] [address] [address] [address] Judah Parnell VLDL CALC 38.0 mg/dL Normal [facility] Comment on above: Performed By: #### B MP, TSH, LIVER, LIPID #### [facility] [address] [address] [address] Judah Parnell LIVER PROFILEon 09-25-2021 Albumin [Mass/Vol] 4.0 g/dL Normal 3.5-5.0 [facility] Comment on above: Performed By: #### B MP, TSH, LIVER, LIPID #### [facility] [address] [address] [address] Judah Parnell Albumin/Globulin [Mass ratio] 1.1 {ratio} Normal [facility] Comment on above: Performed By: #### B MP, TSH, LIVER, LIPID #### [facility] [address] [address] [address] Judah Parnell ALP [Catalytic activity/Vol] 118 U/L Normal 38-126 [facility] Comment on above: Performed By: #### B MP, TSH, LIVER, LIPID #### [facility] [address] [place] [address] Dr. Judah Parnell ALT [Catalytic activity/Vol] 65 U/L Normal 21-72 [facility] Comment on above: Performed By: #### B MP, TSH, LIVER, LIPID #### [facility] [address] [place] [address] Dr. Judah Parnell AST [Catalytic activity/Vol] 40 U/L Normal 17-59 [facility] Comment on above: Performed By: #### B MP, TSH, LIVER, LIPID #### [facility] [address] [place] [address] Dr. Judah Parnell BILI, CONJUGATED 0.2 mg/dL Normal 0.0-0.3 [facility] Comment on above: Performed By: #### B MP, TSH, LIVER, LIPID #### [facility] [address] [address] [address] Judah Parnell Bilirubin [Mass/Vol] 0.8 mg/dL Normal 0.2-1.3 [facility] Comment on above: Performed By: #### B MP, TSH, LIVER, LIPID #### [facility] [address] [place] [address] Dr. Judah Parnell Globulin (S) [Mass/Vol] 3.7 g/dL Normal [facility] Comment on above: Performed By: #### B MP, TSH, LIVER, LIPID #### [facility] [address] [address] [address] Judah Parnell Protein [Mass/Vol] 7.7 g/dL Normal 6.1-8.2 [facility] Comment on above: Performed By: #### B MP, TSH, LIVER, LIPID #### [facility] [address] [place] [address] Dr. Judah Parnell PROF CHEM 8 (BAS METB)on Anion gap [Moles/Vol] 13.1 mmol/L Normal [facility] Comment on above: Performed By: #### B MP, TSH, LIVER, LIPID #### [facility] [address] [place] [address] Dr. Judah Parnell Calcium [Mass/Vol] 8.9 mg/dL Normal 8.4-10.2 [facility] Comment on above: Performed By: #### B MP, TSH, LIVER, LIPID #### [facility] [address] [place] [address] Dr. Judah Parnell Chloride [Moles/Vol] 103 mmol/L Normal 98-107 [facility] Comment on above: Performed By: #### B MP, TSH, LIVER, LIPID #### [facility] [address] [place] [address] Dr. Judah Parnell CO2 [Moles/Vol] 26.2 mmol/L Normal 22.0-30.0 [facility] Comment on above: Performed By: #### B MP, TSH, LIVER, LIPID #### [facility] [address] [place] [address] Dr. Judah Parnell Creatinine [Mass/Vol] 0.81 mg/dL Normal 0.66-1.25 [facility] Comment on above: Performed By: #### B MP, TSH, LIVER, LIPID #### [facility] [address] [place] [address] Dr. Judah Parnell EGFR-AF TRISTANIAN >60 Normal >=60 [facility] Comment on above: Performed By: #### B MP, TSH, LIVER, LIPID #### [facility] [address] [place] [address] Dr. Judah Parnell EGFR-NON AF TRISTANIAN >60 Normal >=60 [facility] Comment on above: Performed By: #### B MP, TSH, LIVER, LIPID #### [facility] [address] [place] [address] Dr. Judah Parnell Glucose [Mass/Vol] 150 mg/dL Critically high 74-106 [facility] Comment on above: Performed By: #### B MP, TSH, LIVER, LIPID #### [facility] [address] [place] [address] Dr. Judah Parnell Potassium [Moles/Vol] 4.3 mmol/L Normal 3.4-5.0 [facility] Comment on above: Performed By: #### B MP, TSH, LIVER, LIPID #### [facility] [address] [place] [address] Dr. Judah Parnell Sodium [Moles/Vol] 138 mmol/L Normal 137-145 [facility] Comment on above: Performed By: #### B MP, TSH, LIVER, LIPID #### [facility] [address] [place] [address] Dr. Judah Parnell Urea nitrogen [Mass/Vol] 13.0 mg/dL Normal 9.0-20.0 [facility] Comment on above: Performed By: #### B MP, TSH, LIVER, LIPID #### [facility] [address] [place] [address] Dr. Judah Parnell Urea nitrogen/Creatinine [Mass ratio] 16.0 mg/mg Normal [facility] Comment on above: Performed By: #### B MP, TSH, LIVER, LIPID #### [facility] [address] [place] [address] Dr. Judah Parnell TSHon 09-25-2021 TSH 1.568 uIU/mL Normal 0.470-4.680 [facility] Comment on above: Performed By: #### B MP, TSH, LIVER, LIPID #### [facility] [address] [place] [address] Dr. Judah Parnell TSH RANGE SEE BELOW Normal [facility] Comment on above: Result Comment: <0.3 4 UIU/ml HYPERTHYROID 0.34-5.60 UIU/ml EUTHYROID >5.60 UIU/ml HYPOTHYROID Performed By: #### B MP, TSH, LIVER, LIPID #### [facility] [address] [place], [place] [address] Dr. Judah Parnell VITAMIN D 25 OHon 09-25-2021 VIT D 25-OH 8.8 ng/mL Normal [facility] Comment on above: Performed By: #### V ITAD, PSASC #### [facility] [address], [place] [address] Dr. Judah Parnell VIT D RANGES SEE BELOW Normal [facility] Comment on above: Result Comment: <20 ng/mL Vit D deficient 20 - <30 ng/mL Vit D insufficient 30 - 100 ng/mL Vit D sufficient >100 ng/mL Potential Toxicity Performed By: #### V ITAD, PSASC #### [facility] [address] [address] [address] Judah Parnell COVID Quick Testingon 2020 Result Negative [facility] Other Vital Signs Date Time Vital Sign Value Performing Clinician Facility 02-21-2025 15:10-0400 Body height 175.3 cm Manny Cali MD Work Phone: [facility] 02-21-2025 15:10-0400 Body mass index (BMI) [Ratio] 37.36 kg/m2 Manny Cali MD Work Phone: [facility] 02-21-2025 15:10-0400 Body temperature 97.81 [degF] Manny Cali MD Work Phone: [facility] 02-21-2025 15:10-0400 Body weight 114.76 kg Manny Cali MD Work Phone: [facility] 02-21-2025 15:10-0400 Diastolic blood pressure 84 mm[Hg] Manny Cali MD Work Phone: [facility] 02-21-2025 15:10-0400 Heart rate 111 /min Manny Cali MD Work Phone: [facility] 02-21-2025 15:10-0400 Respiratory rate 20 /min Manny Cali MD Work Phone: [facility] 02-21-2025 15:10-0400 SaO2% (BldA) [Mass fraction] 98 % Manny Cali MD Work Phone: [facility] 02-21-2025 15:10-0400 Systolic blood pressure 140 mm[Hg] Manny Cali MD Work Phone: [facility] 08-23-2024 15:49-0500 Body height 175.3 cm Manny Cali MD Work Phone: [facility] 08-23-2024 15:49-0500 Body mass index (BMI) [Ratio] 39.72 kg/m2 Manny Cali MD Work Phone: [facility] 08-23-2024 15:49-0500 Body temperature 97.81 [degF] Manny Cali MD Work Phone: [facility] 08-23-2024 15:49-0500 Body weight 122.02 kg Manny Cali MD Work Phone: [facility] 08-23-2024 15:49-0500 Diastolic blood pressure 76 mm[Hg] Manny Cali MD Work Phone: [facility] 08-23-2024 15:49-0500 Heart rate 106 /min Manny Cali MD Work Phone: [facility] 08-23-2024 15:49-0500 Respiratory rate 16 /min Manny Cali MD Work Phone: [facility] 08-23-2024 15:49-0500 SaO2% (BldA) [Mass fraction] 97 % Manny Cali MD Work Phone: [facility] 08-23-2024 15:49-0500 Systolic blood pressure 130 mm[Hg] Manny Cali MD Work Phone: [facility] 06-03-2022 12:15-0500 Body height 175.26 cm Ciara Ortega Other [facility] Other 06-03-2022 12:15-0500 Body mass index (BMI) [Ratio] 39.28 kg/m2 Ciara Ortega Other [facility] Other 06-03-2022 12:15-0500 Body temperature 98.2 [degF] Ciara Ortega Other [facility] Other 06-03-2022 12:15-0500 Body weight 120.66 kg Ciara Ortega Other [facility] Other 06-03-2022 12:15-0500 Diastolic blood pressure 85 mm[Hg] Ciara Ortega Other [facility] Other 06-03-2022 12:15-0500 Respiratory rate 18 /min Ciara Ortega Other [facility] Other 06-03-2022 12:15-0500 SaO2% (BldA) [Mass fraction] 99 % Ciara Ortega Other [facility] Other 06-03-2022 12:15-0500 Systolic blood pressure 131 mm[Hg] Ciara Ortega Other [facility] Other 06-20-2021 13:00-0500 Body height 175.26 cm Ciara Karennty Other [facility] Other 06-20-2021 13:00-0500 Body mass index (BMI) [Ratio] 41.34 kg/m2 Ciara Karennty Other [facility] Other 06-20-2021 13:00-0500 Body temperature 97.4 [degF] Ciara Karennty Other [facility] Other 06-20-2021 13:00-0500 Body weight 127.01 kg Ciara Trinh Other [facility] Other 06-20-2021 13:00-0500 Respiratory rate 18 /min Ciara Trinh Other [facility] Other 06-20-2021 13:00-0500 SaO2% (BldA) [Mass fraction] 97 % Ciara Trinh Other [facility] Other Encounters Encounter Date Encounter Type Care Provider Facility Start: 02-21-2025 End: 02-21-2025 Office outpatient visit 25 minutes Manny Cali MD Work Phone: [facility] Comment on above: Type 2 diabetes opal itus with hyperglycemia, without long-term current use of insulin (HCC) (Primary Dx); Essential hypertension, benign ; Erectile dysfunction of organic origin; Class 2 severe obesity due to excess calories with serious comorbidity and body mass index (BMI) of 37.0 to 37.9 in adult ([facility]); Type 2 diabetes mellitus with diabetic microalbuminuria, without long-term current use of insulin ([facility]) Start: 02-21-2025 End: 02-21-2025 ambulatory MANNY CALI Not Available Start: 02-21-2025 End: 02-21-2025 Bamboo flowsheet Manny Cali MD Work Phone: [facility] Start: 02-21-2025 End: 02-21-2025 Bamboo flowsheet Manny Cali MD Work Phone: [facility] Start: 11-07-2024 End: 11-07-2024 Clinisync Result Encounter Manny Cali MD Work Phone: [facility] Unsolicited Start: 11-07-2024 End: 11-07-2024 Clinisync Result Encounter Manny Cali MD Work Phone: [facility] Un[facility]olic[facility] Start: 09-05-2024 End: 09-05-2024 Refill Manny Cali MD Work Phone: [facility] Comment on above: Dyslipidemia (CMS/HC C) Start: 08-23-2024 End: 08-23-2024 Patient encounter procedure Manny Cali MD Work Phone: [facility] Work Phone: Start: 08-23-2024 End: 08-23-2024 Periodic preventive med est patient 40-64yrs Manny Cali MD Work Phone: [facility] Comment on above: Annual physical exam (Primary Dx); Type 2 diabetes mellitus with hyperglycemia, without long-term current use of insulin (CMS/HCC); Essential hypertension, benign (CMS/HCC); Class 2 severe obesity due to excess calories with serious comorbidity and body mass index (BMI) of 39.0 to 39.9 in adult (CMS/HCC); Erectile dysfunction of organic origin; Type 2 diabetes mellitus with other specified complication (CMS/HCC) Start: 08-23-2024 End: 08-23-2024 ambulatory MANNY CALI Not Available Start: 08-23-2024 End: 08-23-2024 Bamboo flowsheet Manny Cali MD Work Phone: [facility] Start: 08-23-2024 End: 08-23-2024 Bamboo flowsheet Manny Cali MD Work Phone: [facility] Start: 03-23-2024 End: 03-23-2024 Clinisync Result Encounter Manny Cali MD Work Phone: [facility] Unsolicited Start: 03-23-2024 End: 03-23-2024 Clinisync Result Encounter Manny Cali MD Work Phone: [facility]olic[facility] Start: 07-21-2023 Patient encounter procedure Manny Cali MD Work Phone: [facility] Start: 09-12-2022 End: 03-04-2023 ambulatory MANNY CALI Facility:[facility] Start: 06-03-2022 End: 06-03-2022 ambulatory Ciara Ortega Other [facility] Other Start: 06-03-2022 Office outpatient vi sit 25 minutes Ciara Ortega [facility] Start: 09-26-2021 Encounter for genera l adult medical examination without abnormal findings MANNY CALI [facility] Start: 09-25-2021 End: 09-26-2021 ambulatory MANNY CALI Facility:[facility] Start: 09-25-2021 End: 09-26-2021 Encounter for general adult medical examination without abnormal findings MANNY CALI Facility:[facility] Start: 06-20-2021 End: 06-20-2021 ambulatory Ciara Ziggy Other [facility] Other Start: 06-20-2021 Office outpatient vi sit 15 minutes Ciara Ziggy [facility] Procedures Date Procedure Procedure Detail Performing Clinician Start: 11-07-2024 ALL CBC WITH AUTO DIFF Manny Cali MD Work Phone: Start: 03-23-2024 MLR HEMOGLOBIN A1C Manny Cali MD Work Phone: Start: 09-25-2021 PSA screening MANNY [facility] Comment on above: Performed By: #### V ITAD, PSASC #### [facility] [address] [place] [address] Dr. Judah Parnell Plan of Treatment Date Care Activity Detail Author Start: 12-08-2026 Screening for malign ant neoplasm of colon [facility] Start: 01-18-2026 Glaucoma screening Diabetes: R etinopathy Screening [facility] Start: 11-07-2025 Urine screening for protein Diabetes: Urine Protein Screening [facility] Start: 08-29-2025 End: 08-29-2025 Patient encounter procedure 08/29/2025 3:00 PM EST Office Visit [facility] [address] [place] [id number] Manny Cali MD [address] [place] [address] [facility] Start: 05-09-2025 Hemoglobin A1c measurement Diabetes: Hemoglobin A1C [facility] Start: 03-13-2025 Influenza vaccination N [facility] Start: 02-21-2025 End: 02-21-2025 Patient encounter procedure [facility] Comment on above: Arrived Start: 02-21-2025 End: 02-21-2026 Hemoglobin A1c/Hemoglobin.total in Blood Hemoglobin A1c Lab Routine Type 2 diabetes mellitus with hyperglycemia, without long-term current use of insulin (HCC) Expected: 02/21/2025 (Approximate), Expires: 02/21/2026 [facility] Work Phone: Comment on above: Expected: 02/21/2025 (Approximate), Expires: 02/21/2026 Start: 08-28-2024 Urine screening for protein Diabetes: Urine Protein Screening [facility] Start: 08-23-2024 End: 08-23-2024 Patient encounter procedure [facility] Comment on above: Arrived Start: 08-23-2024 End: 08-23-2025 Basic metabolic 1998 panel - Serum or Plasma Basic metabolic panel Lab Routine Annual physical exam Expected: 08/23/2024 (Approximate), Expires: 08/23/2025 [facility] Comment on above: Expected: 08/23/2024 (Approximate), Expires: 08/23/2025 Start: 08-23-2024 End: 08-23-2025 CBC W Auto Differential panel - Blood CBC and differential Lab Routine Annual physical exam Expected: 08/23/2024 (Approximate), Expires: 08/23/2025 [facility] Comment on above: Expected: 08/23/2024 (Approximate), Expires: 08/23/2025 Start: 08-23-2024 End: 08-23-2025 Hemoglobin A1c/Hemoglobin.total in Blood Hemoglobin A1c Lab Routine Annual physical exam Expected: 08/23/2024 (Approximate), Expires: 08/23/2025 [facility] Comment on above: Expected: 08/23/2024 (Approximate), Expires: 08/23/2025 Start: 08-23-2024 End: 08-23-2025 Hepatic function 2000 panel - Serum or Plasma Hepatic function panel Lab Routine Annual physical exam Expected: 08/23/2024 (Approximate), Expires: 08/23/2025 [facility] Comment on above: Expected: 08/23/2024 (Approximate), Expires: 08/23/2025 Start: 08-23-2024 End: 08-23-2025 Lipid 1996 panel - Serum or Plasma Lipid panel Lab Routine Annual physical exam Expected: 08/23/2024 (Approximate), Expires: 08/23/2025 [facility] Comment on above: Expected: 08/23/2024 (Approximate), Expires: 08/23/2025 Start: 08-23-2024 End: 08-23-2025 Microalbumin/Creatinine panel in random Urine Microalbumin / creatinine, urine ratio Lab Routine Type 2 diabetes mellitus with hyperglycemia, without long-term current use of insulin ([facility]) Expected: 08/23/2024 (Approximate), Expires: 08/23/2025 [facility] Work Phone: Comment on above: Expected: 08/23/2024 (Approximate), Expires: 08/23/2025 Start: 08-23-2024 End: 08-23-2025 Prostate specific Ag [Mass/volume] in Serum or Plasma PSA Lab Routine Annual physical exam Expected: 08/23/2024 (Approximate), Expires: 08/23/2025 [facility] Comment on above: Expected: 08/23/2024 (Approximate), Expires: 08/23/2025 Start: 08-23-2024 End: 08-23-2025 Thyrotropin [Units/volume] in Serum or Plasma TSH Lab Routine Annual physical exam Expected: 08/23/2024 (Approximate), Expires: 08/23/2025 [facility] Comment on above: Expected: 08/23/2024 (Approximate), Expires: 08/23/2025 Start: 03-13-2024 Influenza vaccination Influenza Vacc ine (#1) [facility] Start: 02-26-2024 Hemoglobin A1c measurement Diabetes: Hemoglobin A1C [facility] Start: 1975 Screening for malign ant neoplasm of colon [facility] Payers Date Payer Category Payer Private Health Insurance [facility] [id number] 2022 Unknown [employer] [id number] 2022-Present [phone] [address] [address] [place] [address] [id number] 2022 Unknown [id number] 1976 Unknown [id number] 1976 Unknown [id number] 1976 Unknown [id number] 1976 Unknown [id number] 1959 Unknown [id number] Social History Date Type Detail Facility Unknown if ever smoked [facility] Other Start: 02-16-2024 End: 02-21-2025 Sex Assigned At [employer] Other Start: 07-21-2023 Tobacco smoking stat [facility] Smokes tobacco daily [facility] History of tobacco use Cigarette Smoker [facility] Start: 07-21-2023 End: 02-21-2025 Cigarettes smoked current (pack per day) - Reported 0.5 [facility] Start: 07-21-2023 Tobacco use and exposure Smokeless tobacco non-user [facility] Start: 1975 Sex assigned at Not on file [facility] History of Present illness Narrative 02-21-2025 Manny Cali MD - 02/21/2025 3:40 PM Vani Cali MD - 02/21/2025 3:39 PM Vani Cali MD - 02/21/2025 3:39 PM Vani Cali MD - 02/21/2025 3:39 PM EDT Note Date & Type Note Facility 02-21-2025 History of Presen t illness Narrative Associated Problem(s): Type 2 diabetes mellitus with diabetic microalbuminuria, without long-term current use of insulin (HCC) Continue lisinopril. Associated Problem(s): Type 2 diabetes mellitus with hyperglycemia, without long-term current use of insulin (HCC) Not checking BS away from office and due for A1C. Stick to ADA diet and limit carbs. Associated Problem(s): Essential hypertension, benign BP controlled and monitor PRN. Associated Problem(s): Erectile dysfunction of organic origin Use viagra PRN. Associated Problem(s): Class 2 severe obesity due to excess calories with serious comorbidity and body mass index (BMI) of 37.0 to 37.9 in adult ([facility]) Weight loss indicated. Images from the original note were not included. Subjective Patient ID: Braulio Olea is a 49 y.o. male who presents for Follow-up (6m). Follow up DM and HTN. Patient stable today. Not checking BS away from office. Tries to eat well and stick to ADA diet. Denies signs of elevated BS such as polyuria, polyphagia or polydipsia. Checking BP PRN and typically controlled. BP normal today. [...] hyperglycemia, without long-term current use of insulin ([facility]) - Primary Not checking BS away from office and due for A1C. Stick to ADA diet and limit carbs. Relevant Orders Hemoglobin A1c Class 2 severe obesity due to excess calories with serious comorbidity and body mass index (BMI) of 37.0 to 37.9 in adult ([facility]) Weight loss indicated. Type 2 diabetes mellitus with diabetic microalbuminuria, without long-term current use of insulin (HCC) documented in this encounter [facility] History of Present illness Narrative 08-23-2024 Manny Cali MD - 08/23/2024 4:23 PM Chela Cali MD - 08/23/2024 4:23 PM Chela Cali MD - 08/23/2024 4:23 PM Chela Cali MD - 08/23/2024 4:23 PM EST Note Date & Type Note Facility 08-23-2024 History of Presen t illness Narrative Associated Problem(s): Type 2 diabetes mellitus with hyperglycemia, without long-term current use of insulin ([facility]) Not checking BS away from office and due for A1C. Stick to ADA diet and limit carbs. Associated Problem(s): Essential hypertension, benign ([facility]) BP controlled and monitor PRN. Associated Problem(s): Class 2 severe obesity due to excess calories with serious comorbidity and body mass index (BMI) of 39.0 to 39.9 in adult ([facility]) Discussed proper diet and regular aerobic exercise. Recommend Weight Watchers and need to limit calories and smaller portions. Need to increase activity and regular aerobic exercise several days a week for 30 minutes at a time. Associated Problem(s): Annual physical exam Due for labs. Discussed proper diet and regular aerobic exercise. Need aerobic exercise 5-6 days a week for 30 minutes at a time. Smaller portions and limit total calories. Cologuard normal November 2023. Tetanus every 10 years. Advised not to smoke. Images from the original note were not included. Subjective Patient ID: Braulio Olea is a 48 y.o. male who presents for Annual Exam (wellness). Presents for annual PE. Patient feels well today. Weight up 5 pounds in the past year. Not as active in winter and no regular exercise. Tries to watch diet and eat healthy. Increased fruits and vegetables. Smaller portions and limits snacking. Tries to limit total daily calories. Due for labs. Not checking BS away from office. Review of Systems Constitutional: Negative for fatigue. [...] There is no guarding or rebound. Musculoskeletal: General: Normal range of motion. Left lower leg: No edema. Neurological: General: No focal deficit present. Mental Status: He is alert. Cranial Nerves: No cranial nerve deficit. Deep Tendon Reflexes: Reflexes normal. Assessment/Plan Problem List Items Addressed This Visit Essential hypertension, benign (CMS/HCC) BP controlled and monitor PRN. Erectile dysfunction of organic origin Type 2 diabetes mellitus with hyperglycemia, without long-term current use of insulin (CMS/HCC) Not checking BS away from office and due for A1C. Stick to ADA diet and limit carbs. Relevant Orders Microalbumin / creatinine, urine ratio Annual physical exam - Primary Due for labs. Discussed proper diet and regular aerobic exercise. Need aerobic exercise 5-6 days a week for 30 minutes at a time. Smaller portions and limit total calories. Cologuard normal November 2023. Tetanus every 10 years. Advised not to smoke. Relevant Orders Hemoglobin A1c Basic metabolic panel CBC and differential Hepatic function panel Lipid panel PSA TSH Class 2 severe obesity due to excess calories with serious comorbidity and body mass index (BMI) of 39.0 to 39.9 in adult ([facility]) Discussed proper diet and regular aerobic exercise. Recommend Weight Watchers and need to limit calories and smaller portions. Need to increase activity and regular aerobic exercise several days a week for 30 minutes at a time. Other Visit Diagnoses Type 2 diabetes mellitus with other specified complication ([facility]) documented in this encounter [facility] Evaluation note 06-03-2022 Note Date & Type Note Facility 06-03-2022 Evaluation note Encounter Date Diagnosis Assessment Notes May, Contact with and (suspected) exposure to other viral communicable diseases (ICD-10 - Z20.828) May, COVID-19 (ICD-10 - U07.1) COVID test performed in office today. Advised patient that test was positive. Instructed patient to isolate per CDC guidelines for 5 days from symptom onset, mask 5 days following. May return to work/activities outside home after isolation period as long as symptoms are improving and has been afebrile for 24 hours without use of antipyretic. Advised patient that treatment of COVID is with viral supportive care, OTC cold medications as directed, Tylenol/Motrin as needed for body aches/fever. Increase fluids and rest. Encouraged use of cool mist humidifier. Follow-up with PCP to advise of positive result and further management. Immediate eval for SOB, difficulty, chest pain, fevers that do not break with antipyretic or any other concerning symptoms as reviewed on patient education handout. Patient verbalizes understanding and is agreeable to treatment plan. Patient left in stable condition [facility] Other Evaluation note 06-20-2021 Note Date & Type Note Facility 06-20-2021 Evaluation note Encounter Date Diagnosis Assessment Notes Jun, Contact with and (suspected) exposure to other viral communicable diseases (ICD-10 - Z20.828) Advised patient that COVID antigen test was negative today. Advised patient to follow up with PCP if symptoms do not improve for COVID PCR test. Supportive care as directed, increase fluids and rest, Tylenol/Motrin as directed, OTC cough/cold remedies as directed on packaging such as Cordicidin HBP, cool mist humidifier, throat lozenges. Discussed infection control practices such as good hand washing and mask wearing. Patient to follow up with PCP if sx persist or worsen despite treatment. Immediate eval for SOB, difficulty, chest pain, fevers that do not break with antipyretic or any other concerning symptoms as reviewed on patient education handout. Patient verbalizes understanding and is agreeable to treatment plan. Patient left in stable condition Jun, Other Additional time spent conducting pre-visit phone call, screening for symptoms, instructions on social distancing, application and removal of PPE, and cleaning of examination room, equipment and supplies was preformed. Patient education given for testing methodology and results. Patient care instructions given in writting by [facility] Care At Home document. [facility] Other Evaluation note Note Date & Type Note Facility Evaluation note Diagnosis Annual physical exam- Primary [facility] Type 2 diabetes mellitus with hyperglycemia, without long-term current use of insulin (CMS/HCC) Essential hypertension, benign (CMS/HCC) Essential hypertension, benign Vitamin D deficiency Colon cancer screening Special screening for malignant neoplasms, colon Type 2 diabetes mellitus with hyperglycemia, without long-term current use of insulin (CMS/HCC)- Primary Essential hypertension, benign (CMS/HCC) Essential hypertension, benign Morbid obesity due to excess calories (CMS/HCC) Hyperlipidemia, unspecified (CMS/HCC) Body mass index (BMI) 39.0-39.9, adult Type 2 diabetes mellitus with other specified complication (CMS/HCC) Male erectile dysfunction, unspecified Annual physical exam- Primary Routine general medical examination at a [facility] Type 2 diabetes mellitus with hyperglycemia, without long-term current use of insulin (CMS/HCC) Essential hypertension, benign (CMS/HCC) Essential hypertension, benign Class 2 severe obesity due to excess calories with serious comorbidity and body mass index (BMI) of 39.0 to 39.9 in adult (CMS/HCC) 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 Type 2 diabetes mellitus with other specified complication (CMS/HCC) documented in this encounter [facility] Evaluation note Note Date & Type Note Facility Evaluation note Diagnosis Annual physical exam- Primary Routine general medical examination at a health care facility Type 2 diabetes mellitus with hyperglycemia, without long-term current use of insulin (CMS/HCC) Essential hypertension, benign (CMS/HCC) Essential hypertension, benign Vitamin D deficiency Colon cancer screening Special screening for malignant neoplasms, colon Type 2 diabetes mellitus with hyperglycemia, without long-term current use of insulin (CMS/HCC)- Primary Essential hypertension, benign (CMS/HCC) Essential hypertension, benign Morbid obesity due to excess calories (CMS/HCC) Hyperlipidemia, unspecified (CMS/HCC) Body mass index (BMI) 39.0-39.9, adult Type 2 diabetes mellitus with other specified complication (CMS/HCC) Male erectile dysfunction, unspecified Annual physical exam- Primary Routine general medical examination at a health care facility Type 2 diabetes mellitus with hyperglycemia, without long-term current use of insulin (CMS/HCC) Essential hypertension, benign (CMS/HCC) Essential hypertension, benign Class 2 severe obesity due to excess calories with serious comorbidity and body mass index (BMI) of 39.0 to 39.9 in adult (CMS/HCC) 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 Type 2 diabetes mellitus with other specified complication (CMS/HCC) Dyslipidemia (CMS/HCC) Other and unspecified hyperlipidemia documented in this encounter [facility] Healthcare Evaluation note Note Date & Type Note Facility Evaluation note Diagnosis Annual physical exam- Primary Routine general medical examination at a health care facility Type 2 diabetes mellitus with hyperglycemia, without long-term current use of insulin (HCC) Essential hypertension, benign Essential hypertension, benign Vitamin D deficiency Colon cancer screening Special screening for malignant neoplasms, colon Type 2 diabetes mellitus with hyperglycemia, without long-term current use of insulin (HCC)- Primary Essential hypertension, benign Essential hypertension, benign Morbid obesity due to excess calories (CMS-HCC) Hyperlipidemia, unspecified Body mass index (BMI) 39.0-39.9, adult Type 2 diabetes mellitus with other specified complication (HCC) Male erectile dysfunction, unspecified Annual physical exam- Primary Routine general medical examination at a health care facility Type 2 diabetes mellitus with hyperglycemia, without long-term current use of insulin (HCC) Essential hypertension, benign Essential hypertension, benign Class 2 severe obesity due to excess calories with serious comorbidity and body mass index (BMI) of 39.0 to 39.9 in adult (CMS-HCC) 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 Type 2 diabetes mellitus with other specified complication (HCC) Type 2 diabetes mellitus with hyperglycemia, without long-term current use of insulin (HCC)- Primary Essential hypertension, benign Essential hypertension, benign 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 Class 2 severe obesity due to excess calories with serious comorbidity and body mass index (BMI) of 37.0 to 37.9 in adult ([facility]) Type 2 diabetes mellitus with diabetic microalbuminuria, without long-term current use of insulin (HCC) documented in this encounter [facility] History general Narrative - Reported Note Date & Type Note Facility History general Narrative - Reported Type Medical History hypertension Medical History diabetes mallitus Medical History hypercholesterolemia Force-A Other Summary Purpose Family History No Family History Records FoundNo Family History Records Found Advance Directives No Advanced Directives Records FoundNo Advanced Directives Records Found Additional Source Comments REASON FOR VISIT (unrecogniz ed section and content) Reason Comments Annual Exam wellness Reason Onset Date Comments Med Refill 09/05/2024 Reason Comments Follow-up 6m (unrecognized sect ion and content) No Status Records FoundNo Status Records Found INFORMATION SOURCE (unrecogn ized section and content) DATE CREATED AUTHOR 09/17/2022 [facility] DATE CREATED AUTHOR AUTHOR'S ORGANIZ ATION 02/23/2025 [facility] EP[employer] Care Teams (unrecognized sec tion and content) Transportation Solutions Manager Relationship Specialty Start Date End Date Manny Cali MD [address] [place] [phone] PCP - General Family Medicine 02/16/24 [employer] Relationship Specialty Start Date End Date Manny Cali MD [address] [place] [phone] PCP - General Family Medicine 02/16/24 [employer] Manager Relationship Specialty Start Date End Date Manny Cali MD [address] [place] [phone] PCP - General Family Medicine 02/16/24 [employer] Manager Relationship Specialty Start Date End Date Manny Cali MD [address] [place] [phone] PCP - General Family Medicine 02/16/24 [employer] Manager Relationship Specialty Start Date End Date Manny Cali MD [address] [place] [phone] PCP - General [facility] 02/16/24 [employer] Manager Relationship Specialty Start Date End Date Manny Cali MD [address] [place] [phone] PCP - General Family [facility] 02/16/24 FOR RECORDS PERTAINING TO PATIENTS WHO ARE OR HAVE BEEN ENROLLED IN A CHEMICAL DEPENDENCY/SUBSTANCEABUSE PROGRAM, SOME INFORMATION MAY BE OMITTED. This clinical summary was aggregated from multiple sources. Caution should be exercised in using it in the provision of clinical care. This summary normalizes information from multiple sources, and as a consequence, information in this document may materially change the coding, format and clinical context of patient data. In addition, data may be omitted in some cases. CLINICAL DECISIONS SHOULD BE BASED ON THE PRIMARY CLINICAL RECORDS. [facility]. provides no warranty or guarantee of the accuracy or completeness of information in this document.
== END 2025-02-24 10:43 | disposition home or self-care (01) ==
LOC: LAB 10:43
PROVIDERS: PCP Family Medicine; Visit Provider Family Medicine
DX: E11.65 Type 2 diabetes mellitus with hyperglycemia (principal)
CPT/HCPCS: 36415; 83036